=== PATIENT | female | born 1975 | race Caucasian/White ===

== ENCOUNTER 2016-12-26 22:49 | Inpatient (IN) | payer MEDICARE, OTHER ==
--- NOTE | ~2016-12-26 | PN ---
Unit #: [id number] #: [id number] Patient: MARYCRUZ BRUNER [id number] [facility] [address] [place] [address] [id number] Martinez MR#: [id number] NAME: MARYCRUZ BRUNER. ROOM: P251 Age: 41 Sex: F Admission Date: 12/26/2016 : 1975 Attending Physician: Efrain Jean M.D. Admitting Physician: Efrain Jean M.D. Primary Care Physician: Primary Care Physician Ivone WELCH PROGRESS NOTES DATE 01/06/2017 DISCUSSION The patient continues to complain of severe anxiety and continues to feel unsafe without one-to-one supervision. She request today that her lorazepam be reduced to 1 mg but it given in concert with Benadryl. I will go ahead and go forward with this request. I have discussed possible re-initiation of electroconvulsive therapy but the patient, however, she feels as though was ineffectual for her last time and does not wish to pursue this treatment course. Dictated by... Efrain Jean M.D. CB/leonardo TD: 01/06/2017 15:44 JOB #: [id number] [facility] PROGRESS NOTES X Efrain Jean MD PROGRESS NOTE
--- NOTE | ~2016-12-26 | PN ---
Unit #: [id number] #: [id number] Patient: MARYCRUZ BRUNER [id number] [facility] [address] [place] [address] [id number] I MR#: [id number] NAME: MARYCRUZ BRUNER. ROOM: P251 Age: 41 Sex: F Admission Date: 12/26/2016 : 1975 Attending Physician: Efrain Jaen M.D. Admitting Physician: Efrain Jean M.D. Primary Care Physician: Primary Care Physician Ivone CHOWDHURY NOTES DATE 01/11/2017 DISCUSSION The patient continues to complain of dysphoric mood but is active within the therapeutic milieu and has not required return of one-to-one precautions. We continue current treatment and are continuing her trial of Trilafon. I would like to try this medication for at least 3 to 5 more days in order to assess whether she has any positive response from that medication. Dictated by... Efrain Jean M.D. CB/bzclarice TD: 01/13/2017 12:30 JOB #: [id number] [facility] CHOWDHURY NOTES X Efrain Jean MD PROGRESS NOTE
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
--- NOTE | ~2016-12-26 | PN ---
Unit #: [id number] #: [id number] Patient: ARABELLA BRUNER [id number] [facility] [address] [place] [address] [id number] I MR#: [id number] NAME: ARABELLA BRUNER. ROOM: P251 Age: 41 Sex: F Admission Date: 12/26/2016 : 1975 Attending Physician: Efrain Jean M.D. Admitting Physician: Efrain Jean M.D. Primary Care Physician: Ivone Primary Care Physician PEASHANNAN PROGRESS NOTES DATE 01/01/2017. DISCUSSION Arabella required additional medication yesterday due to increasing agitation and episodes of self-harm. She claims that the nurse "lied to me" and withheld one of her medications, although this is not reflected in the MAR. She still appears very frustrated and irritable and continues to express desire to harm herself. She went so far as to remove the bottle cap from a bottle of shampoo in attempt to scratch herself with it yesterday. She remains alert and fully oriented with ongoing dissociative experiences. ASSESSMENT PTSD, chronic. PLAN We will continue one-to-one at all times. The patient will continue under the care of Dr. Jean in my absence. Dictated by... Nathan Sidhu M.D. MRH/gz TD: 01/02/2017 16:20 JOB #: [id number] PEASHANNAN PROGRESS NOTES X Nathan Sidhu MD X PROGRESS NOTE
--- NOTE | ~2016-12-26 | A ---
[facility] Nutrition Therapy DATE: 01/08/17 Patient: MARYCRUZ BRUNER Physician: GAEL Address: [address] Room/Bed: [address], Zip: [place] [address] Admit Date: 12/26/16 Date of : [birth year] Height: 5 6 Weight: [id number] NUTRITIONAL ASSESSMENT: REASON: LOS PATIENT ADMITTED FOR SI, DEPRESSION PMH: DEPRESSION, ASTHMA, SELF-HARMING BEHAVIORS Anthropometrics: HT: 5'6", WT: 163#, BMI: 26.3, %IBW: 125 Labs: NO NEW LABS Meds: LORAZEPAM, WELLBUTRIN, GEODON, ADDERALL, TOPAMAX Assessment: CHART REVIEWED, EVENTS NOTED. PATIENT IS A 41 Y/O FEMALE ADMITTED FOR SI AND DEPRESSION. PATIENT IS CURRENTLY ON DISABILITY, LIVES WITH FAMILY, AND DENIES SUBSTANCE ABUSE. PER NEEDS ASSESSMENT, PATIENT STATED A POOR APPETITE WITH NO WEIGHT LOSS AND WAS NOT SLEEPING WELL. NURSING REPORTS CONSISTENTLY GOOD PO INTAKES. WEIGHT HX PER [employer] SHOWS A STABLE WEIGHT X 1 YEAR. PATIENT HAS HAD MULTIPLE INPATIENT PSYCH TREATMENT AND IS CURRENTLY ON 1:1 PRECAUTIONS D/T CONTINUING WITH SELF-HARMING BEHAVIORS. PATIENT HAS WOUNDS TO BUE D/T CUTTING, WITH NO FURTHER SKIN BREAKDOWN NOTED ATT. PATIENT IS ON A VEGETARIAN DIET, WITH NO GI ISSUES NOTED ATT. CURRENT PSYCH MEDS MAY CAUSE WEIGHT AND APPETITE FLUCTUATIONS. Dx: NO NUTRITION DX Intervention: 1. VEGETARIAN DIET, 2. MEDS PER MD, 3. PSYCH Monitoring, Evaluation and Goals: 1. ADEQUATE PO INTAKES >50% OF MEALS 2. PREVENT, CORRECT MICRO/MACRO NUTRIENT DEFICIENCIES MONITOR: WEIGHTS, LABS, PO/FLUID INTAKES Recommendations: 1. CONTINUE VEGETARIAN DIET TOLERATED 2. ENCOURAGE ADEQUATE PO AND FLUID INTAKES RD TO F/U PER PROTOCOL AND PRN R/T PATIENT NOT AT NUTRITIONAL RISK ATT [facility] Nutrition Therapy DATE: 01/08/17 Patient: MARYCRUZ BRUNER Physician: GAEL Address: Thu [address] Room/Bed: [address], Zip: [place] [address] Admit Date: 12/26/16 Date of : [birth year] Height: 5 6 Weight: [phone] Respectfully, JAYCE BAR RD, LD [facility] cc: client file
--- NOTE | ~2016-12-26 | PN ---
Unit #: [id number] #: [id number] Patient: RAABELLA BRUNER [id number] [facility] [address] [place] [address] [id number] MR#: [id number] NAME: ARABELLA BRUNER. ROOM: P251 Age: 41 Sex: F Admission Date: 12/26/2016 : 1975 Attending Physician: Nathan Sidhu M.D. Admitting Physician: Nathan Sidhu M.D. Primary Care Physician: Primary Care Physician Ivone WELCH PROGRESS NOTES DATE 12/28/2016 DISCUSSION Arabella continues to be isolative from peers, lying in bed, curled up under her blankets today and rocking back and forth in self-comfort. She continues to be on one-to-one precautions. She has not made any active self harm in the last twenty-four hours but continues to "pick" at her previously inflicted wrist wounds, believing there to be a foreign object in them. This was evaluated by our medical staff last night, and no internal embedded objects were found. She has been using the Ativan appropriately and it will remain available. She continues to have active dissociative experiences and active urges to self harm. She has ongoing suicidal ideation with a plan to overdose on medication. ASSESSMENT PTSD, chronic. PLAN I'm going to continue one-to-one precautions at all times due to the high risk of self harm and Ativan p.r.n. for calming. We will also continue VTS monitoring to insure safety. Dictated by... Renetta Martinez/kian TD: 12/29/2016 07:24 JOB #: [id number] Unit #: [id number] #: [id number] Patient: ARAEBLLA BRUNER PROGRESS NOTES X Nathan Sidhu MD X PROGRESS NOTE
--- NOTE | ~2016-12-26 | PN ---
Unit #: [id number] #: [id number] Patient: MARYCRUZ BRUNER [id number] [facility] [address] [place] [address] [id number] I MR#: [id number] NAME: MARYCRUZ BRUNER. ROOM: P251 Age: 41 Sex: F Admission Date: 12/26/2016 : 1975 Attending Physician: Efrain Jean M.D. Admitting Physician: Efrain Jean M.D. Primary Care Physician: Primary Care Physician Ivone WELCH PROGRESS NOTES DATE 01/09/2017 DISCUSSION The patient continues to complain that she is "dissociating a lot" and is fearful that she may act to harm herself or others. She continues to state that she is unsafe without one-to-one precautions. I have spoken with the patient regarding possible initiation of her first-generation antipsychotics, specifically Haldol, Stelazine, etc., but the patient states that she does not tolerate these medications. We are left with few therapeutic options at this point. Dictated by... Efrain Jean M.D. CB/hcétor TD: 01/09/2017 13:56 JOB #: [id number] Y[facility] CHOWDHURY NOTES X Efrain Jean MD PROGRESS NOTE
--- NOTE | ~2016-12-26 | PN ---
Unit #: [id number] #: [id number] Patient: MARYCRUZ BRUNER [id number] [facility] [address] [place] [address] [id number] I MR#: [id number] NAME: MARYCRUZ BRUNER. ROOM: P251 Age: 41 Sex: F Admission Date: 12/26/2016 : 1975 Attending Physician: Efrain Jean M.D. Admitting Physician: Efrain Jean M.D. Primary Care Physician: Primary Care Physician Ivone WELCH PROGRESS NOTES DATE 01/04/2017 DISCUSSION The patient is continuing to complain of severe anxiety and self-mutilating impulses. She remains on one-to-one precautions while awake. She did receive a dose of p.r.n. Benadryl last evening and seemed to do well with that. I will add p.r.n. Benadryl to be given for break-through anxiety along with the lorazepam p.r.n. which is already in place. Dictated by... Efrain Jean M.D. CB/kian TD: 01/04/2017 13:11 JOB #: [id number] [facility] PROGRESS NOTES X Efrain Jean MD PROGRESS NOTE
--- NOTE | ~2016-12-26 | PN ---
Unit #: [id number] #: [id number] Patient: MARYCRUZ BRUNER [id number] [facility] [address] [place] [address] [id number] Martinez MR#: [id number] NAME: MARYCRUZ BRUNER. ROOM: P251 Age: 41 Sex: F Admission Date: 12/26/2016 : 1975 Attending Physician: Efrain Jean M.D. Admitting Physician: Efrain Jean M.D. Primary Care Physician: Primary Care Physician Ivone CHOWDHURY NOTES DATE OF SERVICE 01/08/2017 The patient remains on one to one precautions and states she continues to feel unsafe without these precautions in place continuing to report self-mutilator impulses. She does however report that she will speak with a therapist today regarding strategies to deal with her outpatient therapist later today regarding dealing with these feelings. I have spoken with the patient today frankly regarding my concerns regarding potential for hospital dependence. Dictated by... Efrain Jean M.D. CB/jeimy TD: 01/08/2017 23:10 JOB #: [id number] [facility] PROGRESS NOTES X Efrain Jean MD PROGRESS NOTE
--- NOTE | ~2016-12-26 | PN ---
Unit #: [id number] #: [id number] Patient: MARYCRUZ BRUNER [id number] [facility] [address] [place] [address] [id number] I MR#: [id number] NAME: MARYCRUZ BRUNER. ROOM: P251 Age: 41 Sex: F Admission Date: 12/26/2016 : 1975 Attending Physician: Efrain Jean M.D. Admitting Physician: Efrain Jean M.D. Primary Care Physician: Primary Care Physician Ivone WELCH PROGRESS NOTES DATE 01/10/2017 DISCUSSION The patient states that she is feeling "a little better today," and is ready to try going without her one-to-one observation. We will discontinue the one-to-one but of course we will continue VTS monitoring. Her progress is cautiously encouraging. Dictated by... Efrain Jean M.D. CB/kian TD: 01/10/2017 13:13 JOB #: [id number] [facility] PROGRESS NOTES X Efrain Jean MD PROGRESS NOTE
--- NOTE | ~2016-12-26 | PN ---
Unit #: [id number] #: [id number] Patient: MARYCRUZ BRUNER [id number] [facility] [address] [place] [address] [id number] I MR#: [id number] NAME: MARYCRUZ BRUNER. ROOM: P251 Age: 41 Sex: F Admission Date: 12/26/2016 : 1975 Attending Physician: Efrain Jean M.D. Admitting Physician: Efrain Jean M.D. Primary Care Physician: Primary Care Physician Ivone WELCH PROGRESS NOTES DATE 01/03/2017 DISCUSSION The patient is abed today. She remains on one-to-one precautions while awake but continues to state that she does not feel safe without one-to-one supervision. She is journaling assiduously and attending groups but continues to report that she "wants to hurt herself." We continue current treatment, and the patient remains on one-to-one precautions at this time. Dictated by... Efrain Jean M.D. CB/héctor TD: 01/03/2017 13:38 JOB #: [id number] [facility] PROGRESS NOTES X Efrain Jean MD PROGRESS NOTE
--- NOTE | ~2016-12-26 | PN ---
Unit #: [id number] #: [id number] Patient: MARYCRUZ BRUNER [id number] [facility] [address] [place] [address] [id number] I MR#: [id number] NAME: MARYCRUZ BRUNER. ROOM: P251 Age: 41 Sex: F Admission Date: 12/26/2016 : 1975 Attending Physician: Efrain Jean M.D. Admitting Physician: Efrain Jean M.D. Primary Care Physician: Primary Care Physician Ivone WELCH PROGRESS NOTES DATE 01/02/2017 DISCUSSION The patient continues to complain of dysphoric mood and remains on one-to-one precautions given her ongoing picking behavior. We will attempt to reduce her one-to-one to while awake. We are continuing her VTS precautions. Dictated by... Renetta Cole TD: 01/02/2017 13:02 JOB #: [id number] [facility] PROGRESS NOTES X Efrain Jean MD PROGRESS NOTE
--- NOTE | ~2016-12-26 | PN ---
Unit #: [id number] #: [id number] Patient: MARYCRUZ BRUNER [id number] [facility] [address] [place] [address] [id number] I MR#: [id number] NAME: MARYCRUZ BRUNER. ROOM: [facility] Age: 41 Sex: F Admission Date: 12/26/2016 : 1975 Attending Physician: Efrain Jean M.D. Admitting Physician: fErain Jean M.D. Primary Care Physician: Primary Care Physician Ivone WELCH PROGRESS NOTES DATE 01/11/2017 DISCUSSION The patient is abed today and is reporting that she is "feeling worse" reporting worsening symptoms of dissociation though she remains able to promise safety and is not on one-to-one precautions. At this point, I feel as though something must be done pharmacotherapeutically and will add low dose Trilafon 4 mg twice daily in hopes of progressing the patient's complaints of constant "dissociation" as well as her complaints of increasing paranoia voiced today. Dictated by... Efrain Jean M.D. CB/kian TD: 01/11/2017 13:03 JOB #: [id number] [facility] PROGRESS NOTES X Efrain Jean MD PROGRESS NOTE
--- NOTE | ~2016-12-26 | PN ---
Unit #: [id number] #: [id number] Patient: ARABELLA BRUNER [id number] [facility] [address] [place] [address] [id number] I MR#: [id number] NAME: ARABELLA BRUNER. ROOM: P251 Age: 41 Sex: F Admission Date: 12/26/2016 : 1975 Attending Physician: Nathan Sidhu M.D. Admitting Physician: Nathan Sidhu M.D. Primary Care Physician: Primary Care Physician Ivone CHOWDHURY NOTES DATE OF SERVICE: 12/29/2016 DISCUSSION Arabella continues to require one-to-one monitoring as she still has active thoughts of harming herself and states that she is "looking around for a way to do it." Her wounds previously inflicted appeared to be healing nicely. She complains of difficulty sleeping and is using Ativan about 3 to 4 times a day for her anxiety. She continues to have active dissociative experiences. She is doing more journaling, but has not yet been motivated to come out of her room and join the groups. She is cooperative with one-to-one precautions. ASSESSMENT Posttraumatic stress disorder, chronic. PLAN I am going to increase doxepin to 150 mg at bedtime, and due to the patient's inability to be safe from actively seeking means of self-harm, we will continue one-to-one precautions at all times. Dictated by... Nathan Sidhu M.D. ABIGAIL/harmony TD: 12/30/2016 04:50 JOB #: [id number] [facility] PROGRESS NOTES X Nathan Sidhu MD PROGRESS NOTE
--- NOTE | ~2016-12-26 | PN ---
Unit #: [id number] #: [id number] Patient: MARYCRUZ BRUNER [id number] [facility] [address] [place] [address] [id number] I MR#: [id number] NAME: MARYCRUZ BRUNER. ROOM: P251 Age: 41 Sex: F Admission Date: 12/26/2016 : 1975 Attending Physician: Efrain Jean M.D. Admitting Physician: Efrain Jean M.D. Primary Care Physician: Primary Care Physician Ivone WELCH PROGRESS NOTES DATE 01/05/2017 DISCUSSION The patient continues to complain of self-mutilatory impulses and states that she is unsafe if taken off one-to-one precautions. We are continuing current aggressive pharmacotherapy, but I have spoken to the patient regarding our goal of discontinuing the one-to-one precautions in the near future. Dictated by... Efrain Jean M.D. CB/héctor TD: 01/05/2017 13:37 JOB #: [id number] [facility] PROGRESS NOTES X Efrain Jean MD PROGRESS NOTE
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
--- NOTE | ~2016-12-26 | HP ---
Unit #: [id number] #: [id number] Patient: ARABELLA BRUNER [id number] [place] [address] [id number] MR#: [id number] NAME: ARABELLA BRUNER. ROOM: [facility] Age: 41 Sex: F Admission Date: 12/26/2016 : 1975 Attending Physician: Nathan Sidhu M.D. Admitting Physician: Nathan Sidhu M.D. Primary Care Physician: Primary Care Physician No HISTORY AND PHYSICAL HISTORY OF PRESENT ILLNESS Arabella is a 41 year old admitted to [address] [place] [address] with depression and self-harming behavior. She has been cutting her arms. PAST MEDICAL HISTORY 1. Long history of depression. a. History of ECT. 2. Asthma. 3. History of self harming. PAST SURGICAL HISTORY 1. section 2. 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 ALLERGIES Sulfa, Lamictal, Haldol, Midrin, Depakote. SOCIAL HISTORY Smokes one pack per day. Denies alcohol and illicit drug use. FAMILY HISTORY Medically noncontributory. REVIEW OF SYSTEMS CONSTITUTIONAL: No fever or chills. HEENT: Denies any sore throat, ear pain or runny nose. CARDIOVASCULAR: Denies chest pain, irregular heart rhythm or palpitations. CHEST: Denies shortness of breath or cough. No hemoptysis. GASTROINTESTINAL: Denies nausea, vomiting, diarrhea or chronic constipation. ENDOCRINE: Denies history of increased thirst or urination. No recent significant weight loss or gain. GENITOURINARY: Denies dysuria, frequency, or hematuria. SKIN: Denies any rashes. HEMATOLOGIC: Denies history of increased bleeding or bruising. MUSCULOSKELETAL: Denies any hot, swollen joints. No generalized muscle pain. NEUROLOGIC: Denies problems with vision or speech. No frequent, severe headaches. No numbness, tingling or weakness in any extremities. Denies loss of bladder or bowel control. CURRENT MEDICATIONS Unit #: [id number] #: [id number] Patient: ARABELLA BRUNER 1. Luvox 200 mg q.h.s. 2. Doxepin 100 mg q.h.s. 3. Geodon 160 mg q.h.s. 4. Adderall 10 mg daily 5. Lorazepam 1 mg q.4 h. p.r.n. 6. Adderall 30 mg b.i.d. 7. Wellbutrin XL450 mg q.a.m. 8. Topamax 100 mg b.i.d. 9. Milk of Magnesia p.r.n. 10. Maalox p.r.n. 11. Tylenol p.r.n. PHYSICAL EXAMINATION GENERAL: Alert, well-nourished, in no apparent distress. VITAL SIGNS: Blood pressure 124/80, heart rate 80, respirations 16, temperature 98.6. WEIGHT: 163 pounds. HEIGHT: 5'6". SKIN: Warm and dry without rash. She has significant multiple linear cuts along both anterior forearms. Some of these cuts are through the fatty tissue. There is no increased redness, swelling, heat or pus noted. Neurovascular intact distally. HEENT: Normocephalic. TMs not viewed. Oral and nasal passages clear. Conjunctivae clear. Pupils equal, round and reactive to light and accommodation. Extraocular movements intact. NECK: Supple without lymphadenopathy or thyromegaly. HEART: Regular rate and rhythm without murmur. LUNGS: Clear. ABDOMEN: Soft, nontender. : Not done. EXTREMITIES: No evidence of cyanosis, clubbing or edema. Moves all extremities without focal deficit. NEUROLOGICAL: Grossly within normal limits. Cranial Nerves: II: Visual taylor are intact. III, IV AND : Extraocular movements are intact. Pupils are equal, round and reactive to light. V: Facial sensation is grossly normal. VII: Facial movements and expression are normal. VIII: Auditory acuity grossly intact. IX, X: Uvula is midline. Phonation is normal. XI: Patient shrugs shoulders and turns head normally. XII: Tongue protrudes in the midline. Sensory and Motor Function: Sensory and motor sensation is grossly normal. Motor: moves all extremities well. Coordination: Gait is normal. Deep Tendon Reflexes: Intact. IMPRESSION 1. Psychiatric admission. 2. Significant self-harming cuts sustained prior to this admission. RECOMMENDATIONS PSYCHIATRIC: Per psychiatrist. MEDICAL: 1. I see no contraindications to participating in facility's activities. 2. Keep the wounds clean with soap and water. Cover with wet to dry dressing and nonadherent Telfa pad. Secure with tape daily. MEDICAL PROGNOSIS Good. Unit #: [id number] #: [id number] Patient: ARABELLA BRUNER MEDICAL CONDITION Stable. Dictated by... Polly Tan P.A.-C. for Renetta Marina/jeimy TD: 12/27/2016 21:01 JOB #: [id number] HISTORY AND PHYSICAL X Polly Tan X HISTORY AND PHYSICAL
--- NOTE | ~2016-12-26 | PN ---
Unit #: [id number] #: [id number] Patient: MARYCRUZ BRUNER [id number] [facility] [address] [place] [address] [id number] I MR#: [id number] NAME: MARYCRUZ BRUNER. ROOM: P251 Age: 41 Sex: F Admission Date: 12/26/2016 : 1975 Attending Physician: Efrain Jean M.D. Admitting Physician: Efrain Jean M.D. Primary Care Physician: Primary Care Physician Ivone WELCH PROGRESS NOTES DATE 01/14/2017 DISCUSSION The patient is back on one-to-one precautions now after having become increasingly dysphoric and reporting increased self-mutilatory impulses yesterday. We are continuing current pharmacotherapy and I have spoken to the patient today regarding her need to face that fact that "there is not a pill for every feeling or mood." Dictated by... Efrain Jaen M.D. CB/julianne TD: 01/14/2017 15:37 JOB #: [id number] [facility] PROGRESS NOTES X Efrain Jean MD PROGRESS NOTE
--- NOTE | ~2016-12-26 | PN ---
Unit #: [id number] #: [id number] Patient: MARYCRUZ BRUNER [id number] [facility] [address] [place] [address] [id number] MR#: [id number] NAME: MARYCRUZ BRUNER. ROOM: P251 Age: 41 Sex: F Admission Date: 12/26/2016 : 1975 Attending Physician: Efrain Jean M.D. Admitting Physician: Efrian Jean M.D. Primary Care Physician: Primary Care Physician Ivone WELCH PROGRESS NOTES DATE 01/16/2017 DISCUSSION The patient continues to complain of dysphoric mood but is able to promise safety outside the hospital so that we will discontinue one-to-one precautions, but continue VTS. The patient does not seem to have had much in the way of any positive response to Trilafon and requested discontinuation of this medication. It will be discontinued. Dictated by... Efrain Jean M.D. CB/héctor TD: 01/16/2017 14:18 JOB #: [id number] [facility] PROGRESS NOTES X Efrain Jean MD PROGRESS NOTE
--- NOTE | ~2016-12-26 | PN ---
Unit #: [id number] #: [id number] Patient: MARYCRUZ RBUNER [id number] [facility] [address] [place] [address] [id number] MR#: [id number] NAME: MARYCRUZ BRUNER. ROOM: P251 Age: 41 Sex: F Admission Date: 12/26/2016 : 1975 Attending Physician: Efrain Jean M.D. Admitting Physician: Efrain Jean M.D. Primary Care Physician: Primary Care Physician Ivone WELCH PROGRESS NOTES DATE 01/12/2017 DISCUSSION The patient is dysphoric and seclusive to room. Staff reports that she has been picking at herself but has had no real damage. She has tolerated initiation of Trilafon without complaint. I have explained to the patient today that a medication education handout which he has been provided which indicates the contraindication of co-administration of Trilafon with antidepressants is erroneous. Dictated by... Efrain Jean M.D. CB/héctor TD: 01/12/2017 13:07 JOB #: [id number] Y[facility] PROGRESS NOTES X Efrain Jean MD PROGRESS NOTE
--- NOTE | ~2016-12-26 | PN ---
Unit #: [id number] #: [id number] Patient: MARYCRUZ BRUNER [id number] [facility] [address] [place] [address] [id number] MR#: [id number] NAME: MARYCRUZ BRUNER. ROOM: P251 Age: 41 Sex: F Admission Date: 12/26/2016 : 1975 Attending Physician: Efrain Jean M.D. Admitting Physician: Efrain Jean M.D. Primary Care Physician: Primary Care Physician Ivone CHOWDHURY NOTES DATE 01/19/2017 DISCUSSION When queried today as to how she feels, the patient replies "shitty." She reports that she is angry over her relationship with her mother though there has been no acute blowup between the two reported by the patient. She is requesting an increase in her dose of Ativan. I, however, will choose not to pursue further increased dose of Ativan given concerns about abuse potential as well as potential for disinhibition of the patient's propensity towards dissociation. Dictated by... Efrain Jean M.D. CB/héctor TD: 01/19/2017 14:35 JOB #: [id number] [facility] CHOWDHURY NOTES X Efrain Jean MD PROGRESS NOTE
--- NOTE | ~2016-12-26 | PN ---
Unit #: [id number] #: [id number] Patient: MARYCRUZ BRUNER [id number] [facility] [address] [place] [address] [id number] I MR#: [id number] NAME: MARYCRUZ BRUNER. ROOM: P251 Age: 41 Sex: F Admission Date: 12/26/2016 : 1975 Attending Physician: Efrain Jean M.D. Admitting Physician: Efrain Jean M.D. Primary Care Physician: Primary Care Physician Ivone WELCH PROGRESS NOTES DATE 01/17/2017 DISCUSSION The patient continues to complain of depressed mood and suicidal ideation but is able to promise safety and is not on one-to-one precautions. I have encouraged her to increase her participation within the therapeutic milieu but plan no other pharmacotherapeutic interventions at this point. Dictated by... Efrain Jean M.D. CB/héctor TD: 01/17/2017 13:32 JOB #: [id number] [facility] CHOWDHURY NOTES X Efrain Jean MD PROGRESS NOTE
--- NOTE | ~2016-12-26 | CO ---
Unit #: [id number] #: [id number] Patient: MARYCRUZ BRUNER [id number] [place] [address] [id number] MR#: [id number] NAME: MARYCRUZ BRUNER. ROOM: P251 Age: 41 Sex: F Admission Date: 12/26/2016 : 1975 Attending Physician: Efrain Jean M.D. Primary Care Physician: Primary Care Physician No Consultation Date: 12/27/2016 CONSULTATION REPORT KAYLYN Steele is a 41-year-old with history of self-harming. She was seen for her admission H and P on 12/27/2016 and these areas were described and treatment was outlined. Please see H and P dated 12/27/2016. Dictated by... Polly Tan P.A.-C. for Renetta Marina/harmony TD: 02/03/2017 02:48 JOB #: [id number] CONSULTATION REPORT X Polly Tan CONSULTATION REPORT
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
--- NOTE | ~2016-12-26 | PN ---
Unit #: [id number] #: [id number] Patient: MARYCRUZ BRUNER [id number] [facility] [address] [place] [address] [id number] I MR#: [id number] NAME: MARYCRUZ BRUNER. ROOM: P251 Age: 41 Sex: F Admission Date: 12/26/2016 : 1975 Attending Physician: Efrain Jean M.D. Admitting Physician: Efrain Jean M.D. Primary Care Physician: Primary Care Physician Ivone CHOWDHURY NOTES DATE 01/07/2017 DISCUSSION The patient's self-mutilatory behaviors persist and she remains on one to one precautions. She required a p.r.n. dose of Geodon last evening after banging her head against the wall. There appear to be few real options left from a pharmacologic standpoint given that the patient's on maximum doses of virtually every class of pharmacotherapeutic medication. Dictated by... Efrain Jean M.D. CB/jeimy TD: 01/07/2017 21:59 JOB #: [id number] YURI CHOWDHURY NOTES X Efrain Jean MD PROGRESS NOTE
--- NOTE | ~2016-12-26 | DS ---
Unit #: [id number] #: [id number] Patient: MARYCRUZ BRUNER [id number] [place] [address] [id number] MR#: [id number] NAME: MARYCRUZ BRUNER. ROOM: [facility] Age: 41 Sex: F Admission Date: 12/26/2016 : 1975 Discharge Date: 01/23/2017 Attending Physician: Efrain Jean M.D. Primary Care Physician: Primary Care Physician No DISCHARGE SUMMARY REASON FOR ADMISSION The patient is a 41-year-old white female with profound borderline personality disorder, admitted with recurrent suicidal ideation and self-mutilatory impulses. HOSPITAL COURSE The patient was initially admitted to Dr. Sidhu' care. The patient's care was assumed by this physician on 01/02/2017. During that period of time, the patient on several occasions required one-to-one observation secondary to her ongoing self-mutilatory behavior as her stay in the hospital progressed ever the patient became more and more entitled and somewhat unpleasant interactions with peers and staff. A brief trial of Trilafon was initiated by this physician as the patient seemed to be having no improvement whatsoever, however, she did not tolerate this medication and requested its discontinuation. As the patient's hospitalization progressed, she did show some improvement and reduction in suicidal and self-mutilatory impulses. By 01/21/2017, the patient was much brighter and by 01/21/2017, the patient was brighter and on 01/22/2017, the patient does seem to be showing some improvement. One-to-one precautions were discontinued on 01/22/2017. On 01/23/2017, the patient was brighter and requested discharge from the hospital. It was so ordered. FINAL DIAGNOSES Dysthymic disorder; borderline personality disorder, severe. DISPOSITION ON DISCHARGE The patient is discharged on the following medications: Adderall 10 mg daily before supper, 20 mg twice daily for the patient's history of attention deficit disorder. Topamax 100 mg b.i.d. for mood stabilization, Geodon 60 mg at bedtime for mood stabilization, Luvox 100 mg q.a.m. 200 mg at bedtime for depression, Sinequan 50 mg at bedtime for insomnia, Wellbutrin XL 150 mg daily for depression, Benadryl 25 mg q.4 hours p.r.n. anxiety, Ativan 1 mg q.4 hours p.r.n. anxiety, and Neosporin apply q.4 hours to affected areas. DISCHARGE INSTRUCTIONS No dietary or physical restrictions were placed on the patient at the time of discharge. PROGNOSIS Her prognosis remains somewhat guarded given the profundity of her characterologic pathology. She will follow through the auspices of Unit #: [id number] #: [id number] Patient: ZOHREH,MARYCRUZ [facility] providing psychiatrist in [place], [place]. This physician will provide prescriptions only for Luvox, Geodon, Sinequan, and Wellbutrin. Dictated by... Efrain Jean M.D. CB/harmony TD: 01/24/2017 02:30 JOB #: [id number] DISCHARGE SUMMARY X Efrain Jean MD X DISCHARGE SUMMARY
--- NOTE | ~2016-12-26 | PN ---
Unit #: [id number] #: [id number] Patient: MARYCRUZ BRUNER [id number] [facility] [address] [place] [address] [id number] I MR#: [id number] NAME: MARYCRUZ BRUNER. ROOM: P251 Age: 41 Sex: F Admission Date: 12/26/2016 : 1975 Attending Physician: Efrain Jean M.D. Admitting Physician: Efrain Jean M.D. Primary Care Physician: Primary Care Physician Ivone WELCH PROGRESS NOTES DATE 01/18/2017 DISCUSSION The patient states that she feels "a little better today" and is beginning to make plans regarding possible discharge by early next week. This is an encouraging progress on her part. Dictated by... Efrain Jean M.D. CB/bzclarice TD: 01/18/2017 14:03 JOB #: [id number] [facility] PROGRESS NOTES X Efrain Jean MD X PROGRESS NOTE
--- NOTE | ~2016-12-26 | PN ---
Unit #: [id number] #: [id number] Patient: ARABELLA BRUNER [id number] [facility] [address] [place] [address] [id number] MR#: [id number] NAME: ARABELLA BRUNER. ROOM: P251 Age: 41 Sex: F Admission Date: 12/26/2016 : 1975 Attending Physician: Nathan Sidhu M.D. Admitting Physician: Nathan Sidhu M.D. Primary Care Physician: Ivone Primary Care Physician [facility] PROGRESS NOTES DATE 12/30/2016 DISCUSSION Arabella continues to sit on her bed doing a great deal of journaling and drawing. She shows me a notebook drawing that includes a great number of (1) phrases and words such as "" and hopelessness, with swirls drawn all over it in order to indicate the chaos in her mind. She also reports that she is extremely irritated because there is another patient on the unit who has received art materials that she was told are prohibited. She states that she knows "that's a silly reason to be upset." But is continues to bother her. She continues to state that she is looking around for ways to harm herself on the unit. She is compliant with medications and feels that the Ativan is an appropriate p.r.n. for her, declining an offer of reinitiation of Thorazine. She remains alert and fully oriented with ongoing dissociative experiences. ASSESSMENT PTSD, chronic. PLAN We will continue one-to-one at all times due to the patient's high risk of self harm. She did have holding yesterday due to scratching herself and also accompanied by head-banging, which was noted in nursing notes. We will continue current medications. Dictated by... Renetta Martinez/padma TD: 12/30/2016 16:44 JOB #: [id number] Unit #: [id number] #: [id number] Patient: ARABELLA BRUNER [facility] PROGRESS NOTES X Nathan Sidhu MD X PROGRESS NOTE
[~2016-12-26 22:49] MED LIST: ACETAMINOPHEN650 M4 PO; ALBUTEROL MININEB NEB; ANTACID PO; BUDEPRION XL300 MG PO; DESYREL100 MG PO; DOC-Q-LACE100 MG PO; GEODAN PO; HYDROCODON-ACE1 EAC7 PO; LUVOX PO; MAALOX ADVANCE770 ML PO; MILK OF MAGNESIA PO; MOTRIN600 M2 PO; NICOTINE P1 PATCH .1 TD; PROTONIX PO; THORAZINE25 MG PO; TOPAMAX200 MG PO; VYVANSE50 MG PO; WELLBUTRIN XL PO; [UNRECOGNIZED DRUG - OTHER] PO
== END 2017-01-23 15:30 | disposition home or self-care (01) | DRG 882 ==
LOC: P1E 22:49 → P2L 12-27 14:26
DX: F43.12 Post-traumatic stress disorder, chronic (principal); F33.3 Major depressive disorder, recurrent, severe with psychotic symptoms; R45.851 Suicidal ideations; F60.3 Borderline personality disorder; J45.909 Unspecified asthma, uncomplicated; F17.200 Nicotine dependence, unspecified, uncomplicated; F41.9 Anxiety disorder, unspecified; F34.1 Dysthymic disorder
CPT/HCPCS: J1200